=== PATIENT | female | born 1995 | race American Indian/Alaskan Native ===

== ENCOUNTER 2016-11-12 09:45 | Emergency (ER) | payer OTHER ==
[2016-11-12 09:57] VITALS: BP 115/66
--- NOTE | 2016-11-12 15:06 | Emergency Department Report ---
HPI - General Chief Complaint: Extremity Injury, Upper Time Seen by Provider: 11/12/16 15:03 ED Past Medical Hx - Past Medical History Previous Medical History?: Yes Hx Asthma: Yes - Surgical History Past Surgical History?: Yes - Social History Smoking Status: Heavy Tobacco Smoker Substance Use Type: Alcohol, Marijuana, Prescribed ED Review of Systems ROS: Stated complaint: ARM NUMBNESS Other details as noted in HPI Constitutional: denies: chills, fever Eyes: denies: eye pain, eye discharge, vision change ENT: denies: ear pain, throat pain Respiratory: denies: cough, shortness of breath, wheezing Cardiovascular: denies: chest pain, palpitations Endocrine: no symptoms reported Gastrointestinal: denies: abdominal pain, nausea, diarrhea Genitourinary: denies: urgency, dysuria, discharge Musculoskeletal: denies: back pain, joint swelling, arthralgia Skin: denies: rash, lesions Neurological: denies: headache, weakness, paresthesias Psychiatric: denies: anxiety, depression Hematological/Lymphatic: denies: easy bleeding, easy bruising Physical Exam - Physical Exam Vital Signs: Vital Signs 11/12/16 09:52 Temperature 98.3 F Pulse Rate 67 Respiratory 16 Rate Blood Pressure 115/66 O2 Sat by Pulse 100 Oximetry ED Course Vital Signs 11/12/16 09:52 Temperature 98.3 F Pulse Rate 67 Respiratory 16 Rate Blood Pressure 115/66 O2 Sat by Pulse 100 Oximetry Critical care attestation.: If time is entered above; I have spent that time in minutes in the direct care of this critically ill patient, excluding procedure time. ED Disposition Condition: Stable Referrals: PRIMARY CARE, [Primary Care Provider] - 3-5 Days
== END 2016-11-12 15:47 | disposition left against medical advice (07) ==
LOC: ED 09:45
DX: R20.0 Anesthesia of skin (principal); Z53.21 Procedure and treatment not carried out due to patient leaving prior to being seen by health care provider